=== PATIENT | male | born 1985 | race Caucasian/White ===

== ENCOUNTER 2021-07-28 19:16 | Emergency (ER) | payer BC, SELFPAY ==
[2021-07-28 19:17] VITALS: BP 130/87; PULSE 76; RESP 18; TEMP 36.6; O2SAT 97; BMI 33.5
--- NOTE | 2021-07-28 19:42 | RAD_ITS ---
INDICATION: Injury/Pain EXAMINATION/TECHNIQUE: X-RAY - RIGHT XR Ankle Min 3 Views 3 VIEWS COMPARISON: None. FINDINGS: SOFT TISSUES: Significant lateral ankle soft tissue swelling. No joint effusion. BONES/JOINTS: No acute fracture or subluxation.. Normal alignment. Preservation of the joint space.. No sclerotic or destructive changes observed. RAD/Ankle min 3 Views IMPRESSION: Soft tissue swelling lateral ankle without fracture or malalignment. Electronically Signed: Jose Guadalupe Farris DO at 21:14 EST Tel , Service support ,
--- NOTE | 2021-07-28 20:18 | EDS_ITS ---
HPI History of Present Illness HPI Narrative: Patient with right ankle injury that occurred approximately 1 hour prior to arrival. Patient states he was playing basketball and inverted his right ankle. Patient states his pain is dull. Patient states his pain is worse with walking. Patient states his pain is better when he is off of his foot. Patient states he had an episode of some tingling in his foot initially but this has resolved. Patient denies any weakness. Patient denies any other injuries. Chief Complaint: Lower Extremity Injury Informant: patient Onset/Context/Timing Onset: Today Context: Onset with activity Timing: Continuous Quality of Pain: Dull Worsened by: Weightbearing and walking Relieved by: Rest Associated Symptoms Associated Symptoms: Positive for Parasthesia; Negative for Weakness and Loss of Funtion PFSH PFS Medical History Asthma Inguinal hernia Home Medications albuterol sulfate 1 puff INHALATION Q6H PRN 07/28/21 [History Last Taken Unknown] Allergy/AdvReac Type Severity Reaction Status Date / Time No Known Allergies Allergy Verified 07/28/21 19:19 Surgical History History of tonsillectomy and adenoidectomy Social History Smoking Status: Never smoker ROS ROS ED Constitutional Constitutional ED: Denies chills or fever(s) Eyes Eyes: Denies blurry vision or change in vision ENT ENT ED: Denies rhinorrhea or sore throat Cardiovascular Cardiovascular: Denies chest pain or palpitations Respiratory/Chest Respiratory/Chest: Denies cough or dyspnea Gastrointestinal Gastrointestinal: Denies nausea or vomiting Genitourinary Genitourinary ED: Denies dysuria or hematuria Musculoskeletal Musculoskeletal: Denies back pain or neck pain Integumentary Denies abscess or rash Neurologic Neurologic: Denies headache(s) or weakness Allergic/Immunologic Allergic/Immunologic ED: Denies mouth swelling or urticaria EXAM Physical Exam Const Vital Signs: 07/28/21 19:17 Temperature 97.8 F Temperature Source Temporal Pulse Rate 76 Respiratory Rate 18 Blood Pressure 130/87 H Blood Pressure Mean 101 Pulse Ox 97 Positive well nourished and well developed General Appearance ED: well developed HEENT Reports moist mucous membranes Extremity Extremity Narrative: There is tenderness and edema over the lateral malleolus of the right ankle. There is no obvious deformity noted. There is no bony crepitance or step-off. There is slightly limited range of motion in all motions of the right ankle secondary to pain. Sensation was intact to light touch in all digits. Capillary refill is less than 2 seconds in all digits. There is a strong pedal pulse noted. There is good posterior tibial pulse no teresa. There is no tenderness over the proximal fibula. There is no tenderness over the fifth metatarsal. Neuro oriented x3, CN's II-XII intact bilaterally, moves all extremities and no sensory deficits noted Sensorium / Orientation: alert Motor Exam: strength 5/5 throughout Psych mental status grossly normal MDM MDM MDM Narrative Medical decision making narrative: X-rays of the right ankle were obtained. There are 3 views. On my interpretation, there is no acute fracture. There is no dislocation. There is some soft tissue swelling noted. Radiologist also interpreted the x-rays and agrees. Patient was given an Aircast. Patient was instructed to ice and elevate the right ankle. Patient was instructed to follow-up with his primary care physician in 5 to 7 days. Patient was instructed to take Tylenol or ibuprofen as needed for pain. Patient understood and was agreeable with the plan. All questions were answered. Radiography Diagnostic Testing: Clinical Impression(s) from Imaging Studies Ankle X-Ray 07/28/21 19:42 IMPRESSION: Soft tissue swelling lateral ankle without fracture or malalignment. Electronically Signed: Jose Guadalupe Farris DO at 21:14 EST Tel , Service support , Discharge Plan Triage Chief Complaint: Lower Extremity Injury ED Provider: Bubba Calvillo Dx/Rx/DC Orders Clinical Impression: Right ankle sprain Instructions: ED Ankle Sprain (Adult) Prescriptions: No Action albuterol sulfate 90 mcg/actuation Hfa Aerosol Inhaler 1 puff INHALATION Q6H PRN (Reason: sob) RF: 0 Stand Alone Forms: ED Work / School Excuse Primary Care Provider: Earnest Noriega Referrals: Earnest Noriega MD [Primary Care Provider] - 3-5 Days Disposition Disposition: Home, Self Care
[2021-07-28 22:57] VITALS: BP 119/71; PULSE 84; RESP 16; O2SAT 99
== END 2021-07-28 22:57 | disposition home or self-care (01) ==
PROVIDERS: Emergency Provider Emergency Medicine; PCP Family Medicine
DX: S93.401A Sprain of unspecified ligament of right ankle, initial encounter (principal); J45.909 Unspecified asthma, uncomplicated; X50.1XXA Overexertion from prolonged static or awkward postures, initial encounter; Y93.67 Activity, basketball; Z79.899 Other long term (current) drug therapy
CPT/HCPCS: 73610; 99283

== ENCOUNTER → 2021-08-14 16:42 | Outpatient (CLI) | payer BC, SELFPAY ==
--- NOTE | 2021-08-14 16:52 | RAD_ITS ---
STUDY: X-RAY - RIGHT ANKLE REASON FOR EXAM: Male, 36 years old. Ankle sprain. Pain. TECHNIQUE: 3 view(s) of the ankle. COMPARISON: None. FINDINGS: Normal visualized distal tibia and fibula. Normal medial and lateral malleoli. Normal tibiotalar articulation and ankle mortise. Normal visualized talus and calcaneus. The visualized subtalar, talonavicular, calcaneocuboid and tarsal articulations are normal. Soft tissue swelling over the lateral malleolus. RAD/Ankle min 3 Views IMPRESSION: Lateral malleolar soft tissue swelling. No acute finding. Electronically Signed: Herrera Lee MD at 11:10 EST , Service support ,
== END ==
PROVIDERS: PCP Family Medicine; Referring Provider Family Medicine; Visit Provider Family Medicine
DX: S93.401A Sprain of unspecified ligament of right ankle, initial encounter (principal)
CPT/HCPCS: 73610